=== PATIENT | male | born 1995 | race Caucasian/White ===

== ENCOUNTER 2018-08-21 00:21 | Emergency (ER) | payer MEDICAID, SELFPAY ==
[2018-08-21 00:31] VITALS: BP 154/87; PULSE 87; RESP 18; TEMP 37; O2SAT 98
--- NOTE | 2018-08-21 00:48 | W.ED.GENAD ---
Discharge Plan Disposition Patient Disposition: HOME Condition: Improving Discharge Details Chief Complaint: Nausea/Vomit/Diar Clinical Impression: Headache, Diarrhea, Dehydration Primary Care Provider: Riki Law ED Provider: Martha Ramachandran Home Meds and New Rx's Prescriptions: New prochlorperazine maleate [Compazine] 10 mg tablet 10 mg PO Q6H PRN (Reason: nausea and vomiting) Qty: 5 RF: 0 Discharge Instructions Instructions: Dehydration (ED), Acute Diarrhea (ED), General Headache (ED) Additional Instructions: Take the Compazine as needed and directed for nausea or vomiting. Drink plenty of fluids and get plenty of rest. Follow-up with your primary care doctor this week for reevaluation. Return immediately to the emergency department with any worsening or new concerning symptoms. Discharge Data Discharge Date/Time-TO BE ENTERED AT DEPARTURE: 08/21/18 02:05 Discharge Physician: Martha Ramachandran Medical Decision Making 23-year-old male with a history of bipolar, migraine and ADHD who presents with diarrhea, chills and headache for the past 5 days, worse tonight along with dizziness and right eye photophobia. Positive sick contacts with similar symptoms. Denies any fever or abdominal pain. Blood pressure mildly hypertensive on arrival, remainder vitals within normal limits. Patient appears mildly uncomfortable with photophobia but otherwise nontoxic. PERRLA. Normal ENT exam. Patient has mild diffuse abdominal tenderness, mildly increased in the epigastrium, right upper quadrant and right lower quadrant. No meningeal signs. No focal deficits. Differential diagnosis includes likely gastroenteritis causing dehydration and thus migraine/headache. As he does have some abdominal tenderness, will obtain a CT abdomen and pelvis to rule out acute process. Due to his complaint of worsening headache, will obtain a CT head. Will place an IV, bolus IV fluids, labs, urinalysis and give a dose of Compazine and Benadryl and reassess. 0155 -- patient is feeling much better and is requesting to go home. Patient would rather go home at this time and is declining CT head or CT abdomen. On reassessment of abdomen, he is soft and completely nontender. Active bowel sounds. Patient appears much more comfortable, denies headache or photophobia and is ambulatory and appears in no acute distress. Discussed with patient that his lab work is reassuring with a normal white blood cell count, electrolytes, renal and liver panel making an acute abdominal process less likely. It was discussed that if his symptoms do not improve or worsen, to return immediately to the emergency department for reassessment and consideration of CT abdomen if needed at that time. We will send home with 2 tabs of Compazine as well as prescription. He is instructed to follow-up with the primary care doctor for reevaluation this week. Medical Records Medical records reviewed: Yes I reviewed the patient's medical records. Lab Data Lab results reviewed: Yes I reviewed the patient's lab results. Laboratory Tests Range/Units 08/21/18 08/21/18 08/21/18 00:42 00:42 01:50 WBC (4.4-10.8) k/cumm 9.00 RBC (4.50-6.00) m/cumm 5.02 Hgb (13.5-17.5) g/dL 15.2 Hct (40.0-50.0) % 43.9 MCV (80-95) fL 87.5 MCH (27.0-33.0) pg 30.3 MCHC (32.0-36.0) g/dL 34.6 RDW (11.8-14.1) % 12.2 Plt Count (130-400) x1000/uL 245 MPV (8.0-11.0) fL 10.2 Immature Gran % 0.2 Neutrophils % 68.7 Lymphocytes % 23.6 Monocytes % 6.2 Eosinophils % 1.1 Basophils % 0.2 Absolute Neutrophils (1.2-6.7) k/cumm 6.18 Absolute Lymphocytes (1.2-3.4) k/cumm 2.12 Absolute Monocytes (0.11-0.7) k/cumm 0.56 Absolute Eosinophils (0.0-0.7) k/cumm 0.10 Absolute Basophils (0.0-0.2) k/cumm 0.02 Sodium (136-145) mmol/L 142 Potassium (3.5-5.1) mmol/L 3.8 Chloride (98-107) mmol/L 105 Carbon Dioxide (21.0-32.0) mmol/L 28.4 Anion Gap (3-11) mmol/L 8.6 BUN (7-18) mg/dL 15 Creatinine (0.70-1.30) mg/dL 1.15 Estimated GFR/1.73 m2 (mL/min/1.73m2) >= 60.00 Glucose (70-100) mg/dL 103 H Calcium (8.5-10.1) mg/dL 8.7 Total Bilirubin (0.2-1.0) mg/dL 1.4 H AST (15-37) U/L 22 ALT (12-78) U/L 74 Alkaline Phosphatase (46-116) U/L 55 Total Protein (6.4-8.2) g/dL 7.5 Albumin (3.4-5.0) g/dL 4.2 Lipase (73-393) U/L 108 Urine Color Cancelled Urine Clarity Cancelled Urine pH Cancelled Ur Specific [place] Cancelled Urine Protein Cancelled Urine Ketones Cancelled Urine Blood Cancelled Urine Nitrite Cancelled Urine Bilirubin Cancelled Urine Urobilinogen Cancelled Ur Leukocyte Esterase Cancelled Urine Glucose Cancelled ECG Data Attestation: I personally reviewed and interpreted this ECG (s) as follows: Interpretation: Rate of 79, sinus, no acute ST elevation or depression. QTc 399. QRS 98. HPI General Mode of arrival: ambulatory. Date/Time Provider Initiated Documentation: 08/21/18 00:34. Limitations to Documentation: no limitations. Information obtained by: patient. HPI Narrative: Patient is a 23-year-old male with a history of bipolar disorder, migraine and ADHD who presents with diarrhea, chills, headache for the past days, and worsening headache with photophobia and dizziness tonight. He states his headache wraps around the sides and back of his head and feels aching. Patient states he has a history of similar migraine headaches but this feels more intense and lasting longer than usual. Patient has a sick contact with his girlfriend who had similar symptoms of vomiting and recently. He states his diarrhea has been watery and brown. He admits to intermittent nausea but denies any vomiting. He states tonight he is having difficulty opening his right eye due to the sensitivity to light. He states he has been trying to drink fluids but has been eating less than usual. He admits to hot and cold chills but denies any known fever. He does admit to occasional crampy abdominal pain that occurs with the diarrhea but otherwise denies any abdominal pain at this time. He denies recent travel, recent antibiotics, chest pain, shortness of breath, urinary symptoms, blurry vision or rectal bleeding. Related Data Home Medications Medication Instructions Recorded Confirmed prochlorperazine maleate 10 mg PO Q6H PRN #5 tab 08/21/18 [Compazine] Previous Rx's Medication Instructions Recorded prochlorperazine maleate 10 mg PO Q6H PRN #5 tab 08/21/18 [Compazine] Allergies Allergy/AdvReac Type Severity Reaction Status Date / Time No Known Allergies Allergy Unverified 08/21/18 00:31 General Stated Complaint: Nausea/Vomit/Diar DRAKE: 2 Review of Systems Review of Systems All systems reviewed & are unremarkable except as noted in HPI and below Constitutional Reports as per HPI, Denies chills and Denies fever(s) Eyes Denies blurry vision ENT Denies dizziness, Denies sore throat and Denies throat swelling Cardiovascular Denies chest pain and Denies dyspnea Respiratory Denies cough and Denies dyspnea Gastrointestinal Denies abdominal pain, Denies diarrhea and Denies vomiting Genitourinary Denies hematuria and Denies dysuria Musculoskeletal Denies back pain and Denies numbness Integumentary/Breasts Denies lesions and Denies rash Neurologic Denies dizziness, Denies focal weakness and Denies numbness Allergic/Immunologic Denies throat swelling [facility] Medical History ADHD (Acute) Fatty liver (Acute) Bipolar disorder (Chronic) Migraine (Chronic) Surgical History No significant past surgical history (Acute) Social History Smoking/Tobacco Use Status: Current every day Tobacco Type: cigarettes Smoking cigarettes per day: 3 and e-cigarettes Alcohol Intake: former Substance use type: does not use Do you feel safe at home: Yes Do you feel safe in your relationship?: Yes Exam Const General: cooperative, healthy appearing and no acute distress Orientation: alert, awake and oriented x3 HENMT Head: normal to inspection Ears: hearing grossly normal bilaterally, external ears normal and TM's normal bilaterally General nose exam: external nose normal Face and sinus: normal facial exam Mouth: oral mucosae normal Teeth and gingiva: dentition normal Throat: posterior oropharynx normal Eyes General: appearance normal, both eyes and all related structures Eyelids: eyelids normal Pupils: PERRL EOM: EOM intact bilaterally Neck Neck: normal visual inspection Lymphatic: no lymphadenopathy noted Chest Chest: normal inspection of the chest Resp Effort & Inspection: normal respiratory effort and able to speak in complete sentences Auscultation: clear to auscultation bilaterally Cardio Rate: regular rate Rhythm: regular rhythm GI Inspection: normal to inspection Palpation: soft, not firm, no guarding, no hepatosplenomegaly, no masses and tender (diffuse mildly, increased in epigastrim, RUQ, RLQ) Auscultation: hypoactive bowel sounds Back/Spine/Pelvis Back: no CVA tenderness Skin General skin exam: no rashes or lesions noted Neuro General: alert, awake, gait normal, moves all extremities, no meningeal signs and no focal motor deficits Cranial Nerves: CN's II-XI intact bilaterally Cognition: normal cognition Speech: speech normal Gait: normal gait Motor: muscle tone normal throughout Sensory Exam: no sensory deficits noted Extrem General: normal to inspection and no edema Psych Appearance: grossly normal Mental Status: mental status grossly normal Speech and Movement: speech and movement normal Affect: normal affect Thought Process: normal Course Vital Signs Temperature 98.6 F 08/21/18 00:31 Pulse 87 08/21/18 00:31 Respiratory Rate 18 08/21/18 00:31 Blood Pressure 154/87 H 08/21/18 00:31 Pulse Oximetry 98 08/21/18 00:31 Temperature 98.6 F 08/21/18 00:31 Temperature Source Temporal Artery Scan 08/21/18 00:31 Pulse 87 08/21/18 00:31 Respiratory Rate 18 08/21/18 00:31 Respiratory Effort 08/21/18 00:31 Blood Pressure 154/87 H 08/21/18 00:31 Pulse Oximetry 98 08/21/18 00:31 Oxygen Delivery Method Room Air 08/21/18 00:31 Oxygen Flow Rate 0 08/21/18 00:31
[2018-08-21] MEDS: Omnipaque 350 MG/ML 50 ML BTL 100 ML IV (00:57)
[2018-08-21] MEDS: Prochlorperazine 10 MG/2 ML VIAL IVP (01:07)
[2018-08-21] MEDS: diphenhydrAMINE 50 MG/ML VIAL 25 MG IVP (01:07)
[2018-08-21] MEDS: Normal Saline 1,000 ML 1000 ML IV (01:10)
[2018-08-21 01:29] LABS: Abs Immature Grans 0.02 k/cumm (0.0-0.09); Absolute Basophil Count 0.02 k/cumm (0.0-0.2); Absolute Lymphocyte Count 2.12 k/cumm (1.2-3.4); Absolute Monocyte Count 0.56 k/cumm (0.11-0.7); Absolute Neutrophil Count 6.18 k/cumm (1.2-6.7); Basophils % 0.2; Eosinophils % 1.1; HCT 43.9 % (40.0-50.0); HGB 15.2 g/dL (13.5-17.5); Immature Grans % 0.2; Lymphocytes % 23.6; Mean Corp. HGB Concentration 34.6 g/dL (32.0-36.0); Mean Corpuscular Hemoglobin 30.3 pg (27.0-33.0); Mean Corpuscular Volume 87.5 fL (80-95); Mean Platelet Volume 10.2 fL (8.0-11.0); Monocytes % 6.2; Neutrophils % 68.7; Platelet Count 245 x1000/uL (130-400); RBC 5.02 m/cumm (4.50-6.00); RBC Distribution Width 12.2 % (11.8-14.1)
[2018-08-21 01:42] LABS: ALT 74 U/L (12-78); AST 22 U/L (15-37); Albumin 4.2 g/dL (3.4-5.0); Alkaline Phosphatase 55 U/L (46-116); Anion Gap 8.6 mmol/L (3-11); BUN 15 mg/dL (7-18); Bilirubin, Total 1.4 mg/dL (0.2-1.0); CO2 28.4 mmol/L (21.0-32.0); CREATININE 1.15 mg/dL (0.70-1.30); Calcium 8.7 mg/dL (8.5-10.1); Chloride 105 mmol/L (98-107); Glucose 103 mg/dL (70-100); Lipase 108 U/L (73-393); Potassium 3.8 mmol/L (3.5-5.1); Sodium 142 mmol/L (136-145); Total Protein 7.5 g/dL (6.4-8.2)
[2018-08-21 01:58] VITALS: BP 119/69; PULSE 78; RESP 18; TEMP 36.6; O2SAT 96
[2018-08-21] MEDS: Prochlorperazine 10 MG TAB 20 MG PO (02:03)
== END 2018-08-21 02:05 | disposition home or self-care (01) ==
PROVIDERS: Emergency Provider Physician Assistant; PCP Family Medicine
DX: R51 Headache (principal); R19.7 Diarrhea, unspecified; E86.0 Dehydration
CPT/HCPCS: 36415; 80053; 83690; 96361; 96374; 96375; 99285; 81003; 85025; 99284; J0780; J1200; Q9967

== ENCOUNTER 2019-06-24 20:25 | Emergency (ER) | payer MEDICAID, SELFPAY ==
[2019-06-24 20:28] VITALS: BP 140/85; PULSE 73; RESP 16; TEMP 36.3; O2SAT 98
--- NOTE | 2019-06-24 21:03 | W.ED.GENAD ---
Discharge Plan Disposition Patient Disposition: HOME Condition: Stable Discharge Details Chief Complaint: RespSymp Clinical Impression: Acute sinusitis Primary Care Provider: Riki Law ED Provider: Martha Ramachandran Home Meds and New Rx's Prescriptions: New amoxicillin-pot clavulanate [Augmentin] 875-125 mg tablet 1 tab PO BID 10 Days Qty: 20 RF: 0 Continued prochlorperazine maleate [Compazine] 10 mg tablet 10 mg PO Q6H PRN (Reason: nausea and vomiting) Qty: 5 RF: 0 clonidine HCl 0.1 mg Tablet 0.1 mg PO QHS RF: 0 citalopram 20 mg Tablet 20 mg PO DAILY RF: 0 divalproex [Depakote ER] 500 mg Tablet Extended Release 24 Hr 1,000 mg PO DAILY RF: 0 aripiprazole [Abilify] 20 mg Tablet 20 mg PO DAILY RF: 0 atomoxetine [Strattera] 80 mg Capsule 80 mg PO DAILY RF: 0 Discharge Instructions Instructions: Sinusitis (ED) Additional Instructions: Alternate tylenol and motrin as needed and directed for pain or fever. Use saline nose spray as needed to help with congestion and mucus. You can also try [id number] nasal steroid such as Nasacort, Nasonex or Flonase. Take the antibiotics until finished. Follow-up with your primary care doctor in 1 week as needed. Return to the emergency department with any worsening or new concerning symptoms. Discharge Data Discharge Physician: Martha Ramachandran Medical Decision Making 24yo M presents with headache, left-sided facial pain, sinus congestion, green nasal discharge, and fever, T-max 101 for the past 4 days. States he was seen at [facility] 4 days ago and diagnosed with likely a viral infection. Patient states he was not given any medication. He states his symptoms have worsened since then. He denies neck pain, sore throat or cough. Vitals within normal limits. Afebrile. Patient appears nontoxic. Left-sided sinus tenderness. Left TM dull. Normal oropharynx. Lungs clear. No lymphadenopathy, drooling, trismus or submandibular swelling. Suspect likely acute sinusitis. Discussed with patient that his symptoms could be viral in nature. As his symptoms are worsening with fever and green discharge, may be likely bacterial sinusitis. Patient would prefer to start antibiotics. He was given 1 dose of Augmentin here as well as prescription. Advised on the importance of fluids, OTC meds, and saline nose spray. Advised to follow up with the primary care doctor for re-evaluation. Usual and customary return precautions given prior to discharge. HPI General Mode of arrival: ambulatory. Date/Time Provider Initiated Documentation: 06/24/19 20:29. Limitations to Documentation: no limitations. Information obtained by: patient. History of Present Illness 24 year old M presents to the emergency department with the chief complaint of Headache, left-sided facial pain, nasal congestion, green nasal mucus, feve, and is localized to the face. Patient reports no radiation. Patient started experiencing this day(s) (4) and it has been constant. No relieving factors improve symptom(s), No exacerbating factors reported . Patient notes fever/chills and headaches; denies confusion, chest pain, cough, diaphoresis, loss of appetite, malaise, nausea/vomiting, rash, seizure, shortness of breath, syncope and weakness. Patient did receive the following treatments prior to arrival, none Related Data Home Medications Medication Instructions Recorded Confirmed prochlorperazine maleate 10 mg PO Q6H PRN #5 tab 08/21/18 [Compazine] amoxicillin-pot clavulanate 1 tab PO BID 10 Days #20 tab 06/24/19 [Augmentin] aripiprazole [Abilify] 20 mg PO DAILY 06/24/19 06/24/19 atomoxetine [Strattera] 80 mg PO DAILY 06/24/19 06/24/19 citalopram 20 mg PO DAILY 06/24/19 06/24/19 clonidine HCl 0.1 mg PO QHS 06/24/19 06/24/19 divalproex [Depakote ER] 1,000 mg PO DAILY 06/24/19 06/24/19 Previous Rx's Medication Instructions Recorded prochlorperazine maleate 10 mg PO Q6H PRN #5 tab 08/21/18 [Compazine] amoxicillin-pot clavulanate 1 tab PO BID 10 Days #20 tab 06/24/19 [Augmentin] Allergies Allergy/AdvReac Type Severity Reaction Status Date / Time No Known Allergies Allergy Unverified 06/24/19 20:31 General Stated Complaint: RespSymp DRAKE: 4 Review of Systems All systems reviewed & are unremarkable except as noted in HPI and below Constitutional Constitutional: Reports as per HPI, Denies chills, Reports fever(s) and Reports headache(s) Eyes Eyes: Denies blurry vision ENT Ears, Nose, Mouth, and Throat: Denies dizziness, Reports headache(s), Reports nasal congestion, Reports nasal discharge, Reports sinus pain, Reports sinus pressure, Denies sore throat and Denies throat swelling Cardiovascular Cardiovascular: Denies chest pain and Denies dyspnea Respiratory Respiratory: Denies cough and Denies dyspnea Gastrointestinal Gastrointestinal: Denies abdominal pain, Denies diarrhea and Denies vomiting Genitourinary Genitourinary: Denies hematuria and Denies dysuria Musculoskeletal Musculoskeletal: Denies back pain and Denies numbness Integumentary/Breasts Skin/Breast: Denies lesions and Denies rash Neurologic Neurologic: Denies dizziness, Reports headache(s), Denies focal weakness and Denies numbness Allergic/Immunologic Allergic/Immunologic: Denies throat swelling [facility] Social History Smoking/Tobacco Use Status: Current every day Tobacco Type: cigarettes and e-cigarettes Alcohol Intake: current Alcohol Intake frequency: a few times a week Substance use type: does not use Do you feel safe at home: Yes Do you feel safe in your relationship?: Yes Exam Const General: cooperative, healthy appearing and no acute distress HENMT Head: normal to inspection Ears: hearing grossly normal bilaterally, external ears normal and TM abnormal dull on the left General nose exam: external nose normal Face and sinus: sinus tenderness frontal (L side) and maxillary (L side) Mouth: oral mucosae normal Throat: posterior oropharynx normal and uvula midline Eyes General: appearance normal, both eyes and all related structures Neck Neck: normal visual inspection, full ROM, no lymphadenopathy, no meningeal signs, trachea midline, supple and no anterior neck swelling Resp Effort & Inspection: normal respiratory effort and able to speak in complete sentences Auscultation: clear to auscultation bilaterally Cardio Rate: regular rate Rhythm: regular rhythm Skin General skin exam: no rashes or lesions noted Neuro General: alert, awake and oriented x3 Motor: muscle tone normal throughout Extrem General: normal to inspection and full ROM Psych Appearance: grossly normal Affect: normal affect Course Vital Signs Vital signs: Vital Signs Temperature 97.3 F L 06/24/19 20:28 Pulse 73 06/24/19 20:28 Respiratory Rate 16 06/24/19 20:28 Blood Pressure 140/85 06/24/19 20:28 Pulse Oximetry 98 06/24/19 20:28 Temperature 97.3 F L 06/24/19 20:28 Pulse 73 06/24/19 20:28 Respiratory Rate 16 06/24/19 20:28 Respiratory Effort Non-Labored 06/24/19 20:33 Blood Pressure 140/85 06/24/19 20:28 Blood Pressure Position Sitting 06/24/19 20:28 Pulse Oximetry 98 06/24/19 20:28 Oxygen Delivery Method Room Air 06/24/19 20:28 Oxygen Flow Rate 0 06/24/19 20:28 Pain Level 4 06/24/19 20:28
[2019-06-24] MEDS: Amoxicillin 875/Clav. 125 TAB PO (21:24)
[2019-06-24 21:27] VITALS: BP 140/85; PULSE 73; RESP 16; TEMP 36.3; O2SAT 98
== END 2019-06-24 21:30 | disposition home or self-care (01) ==
PROVIDERS: Emergency Provider Physician Assistant; PCP Family Medicine
DX: R09.81 Nasal congestion (principal); R51 Headache; R50.9 Fever, unspecified; J01.90 Acute sinusitis, unspecified; F17.210 Nicotine dependence, cigarettes, uncomplicated
CPT/HCPCS: 99283